=== PATIENT | male | born 1985 | race Caucasian/White ===

== ENCOUNTER 2020-01-13 15:11 | Emergency (ER) | payer OTHER ==
[~2020-01-13] VITALS: Ht 177.8 cm; Wt 90.7 kg
[~2020-01-13 15:11] MED LIST: AMOXICILLIN 50500 MG PO; CENTANY30 GM TP; IBUPROFEN 800800 M1 PO
[2020-01-13 15:26] VITALS: BP 148/82
[2020-01-13] MEDS ORDERED: BRINTELLIX20 MG PO (15:27)
[2020-01-13 15:28] LABS: URINE BILIRUBIN 1+ (Negative); URINE BLOOD TRACE (Negative); URINE CLARITY SL CLOUDY; URINE COLOR YELLOW; URINE GLUCOSE-RANDOM NEGATIVE (Negative); URINE KETONES 1+ (Negative); URINE LEUKOCYTES-REFLEX 1+ (Negative); URINE NITRITE-REFLEX NEGATIVE (Negative); URINE PROTEIN NEGATIVE (Negative); URINE SPECIFIC GRAVITY >= 1.030 (1.005-1.030); URINE UROBILINOGEN 0.2 E.U./dl (0.2-1.0)
[2020-01-13 15:30] LABS: ICTOTEST (BILI CONFIRMATORY) Positive (Negative)
[2020-01-13 15:36] LABS: BACTERIA-REFLEX >30 Many /HPF (None Seen); CASTS None Seen /LPF (None Seen); CRYSTALS None Seen /LPF (None Seen); MUCUS 0-3 Light strn/LPF (None Seen); SQUAMOUS NONE SEEN /LPF (0-3); URINE RBC 0-2 Rare /HPF (0-2); URINE WBC-REFLEX >25 Many /HPF (0-5); WBC CLUMPS Moderate (None Seen)
[2020-01-13] MEDS ORDERED: DOXYCYCLINE 10100 M2 PO (15:58)
== END 2020-01-13 16:14 | disposition home or self-care (01) ==
LOC: M.ERS 15:11
PROVIDERS: Emergency Medicine Emergency Medical Services
DX: N34.2 Other urethritis (principal); F17.210 Nicotine dependence, cigarettes, uncomplicated; Z86.19 Personal history of other infectious and parasitic diseases

== ENCOUNTER 2020-04-17 11:51 | Emergency (ER) | payer OTHER ==
[~2020-04-17] VITALS: Ht 175.3 cm; Wt 95.3 kg
[~2020-04-17 11:51] MED LIST changes: +BRINTELLIX20 MG PO; +DOXYCYCLINE 10100 M2 PO
[2020-04-17] MEDS ORDERED: BUSPIRONE HCL10 MG PO (12:05)
[2020-04-17] MEDS ORDERED: WELLBUTRIN 75 M75 M1 PO (12:05)
[2020-04-17] MEDS ORDERED: AZITHROMYCIN250 MG PO (12:15)
[2020-04-17] MEDS ORDERED: SUPRAX400 M1 PO (12:15)
[2020-04-17 12:20] VITALS: BP 129/87
== END 2020-04-17 12:20 | disposition home or self-care (01) ==
LOC: M.ERS 11:51
DX: R36.9 Urethral discharge, unspecified (principal); Z86.19 Personal history of other infectious and parasitic diseases

== ENCOUNTER 2020-05-02 12:51 | Emergency (ER) | payer OTHER ==
[~2020-05-02] VITALS: Ht 177.8 cm; Wt 95.3 kg
[~2020-05-02 12:51] MED LIST changes: +AZITHROMYCIN250 MG PO; +BUSPIRONE HCL10 MG PO; +SUPRAX400 M1 PO; +WELLBUTRIN 75 M75 M1 PO
[2020-05-02] MEDS ORDERED: WELLBUTRIN XL150 MG PO (13:05)
[2020-05-02] MEDS ORDERED: PEPCID20 MG PO (14:18)
[2020-05-02] MEDS ORDERED: PREDNISONE 10 M10 MG PO (14:18)
[2020-05-02 14:34] VITALS: BP 132/86
== END 2020-05-02 14:36 | disposition home or self-care (01) ==
LOC: M.ERS 12:51
DX: L53.9 Erythematous condition, unspecified (principal); Z86.19 Personal history of other infectious and parasitic diseases

== ENCOUNTER 2020-09-14 03:06 | Emergency (ER) | payer OTHER ==
[~2020-09-14] VITALS: Ht 177.8 cm; Wt 89.8 kg
[~2020-09-14 03:06] MED LIST changes: +PEPCID20 MG PO; +PREDNISONE 10 M10 MG PO; +WELLBUTRIN XL150 MG PO
[2020-09-14] MEDS ORDERED: CARAFATE 1 GM TA1 GM PO (04:15)
[2020-09-14] MEDS ORDERED: OMEPRAZOLE40 MG PO (04:15)
[2020-09-14 04:37] LABS: HEMATOCRIT 47.3 % (42.0-52.0); HEMOGLOBIN 16.1 gm/dL (14.0-18.0); MCH 29.3 pg (26.0-34.0); MCHC 34.1 g/dL (28.0-37.0); MCV 85.7 fL (80.0-100.0); MPV 9.4 fl. (7.2-11.1); RBC 5.52 mil/uL (4.50-6.00); RDW-CV 13.7 % (10.5-14.5); WBC 5.4 thou/uL (4.0-11.0)
[2020-09-14 04:46] LABS: URINE BILIRUBIN NEGATIVE (Negative); URINE BLOOD NEGATIVE (Negative); URINE CLARITY CLEAR; URINE COLOR YELLOW; URINE GLUCOSE-RANDOM NEGATIVE (Negative); URINE KETONES NEGATIVE (Negative); URINE LEUKOCYTES-REFLEX NEGATIVE (Negative); URINE NITRITE-REFLEX NEGATIVE (Negative); URINE PROTEIN NEGATIVE (Negative); URINE SPECIFIC GRAVITY >= 1.030 (1.005-1.030); URINE UROBILINOGEN 0.2 E.U./dl (0.2-1.0)
[2020-09-14 04:49] LABS: CALCIUM 8.1 mg/dL (8.5-10.1); CREATININE 0.9 mg/dL (0.6-1.3); POTASSIUM 3.8 mmol/L (3.5-5.1)
[2020-09-14 04:53] LABS: ALBUMIN 3.7 g/dL (3.4-5.0); TOTAL BILIRUBIN 0.4 mg/dL (<0.1-1.0); TOTAL PROTEIN 6.9 g/dL (6.4-8.2)
[2020-09-14 04:53] LABS: AMP/METHAMP Negative (Negative); BARBITURATES Negative (Negative); BENZODIAZEPINES POSITIVE (Negative); COCAINE Negative (Negative); METHADONE Negative (Negative); OPIATES Negative (Negative); PCP Negative (Negative); THC Negative (Negative)
[2020-09-14 05:10] VITALS: BP 117/62
== END 2020-09-14 05:10 | disposition home or self-care (01) ==
LOC: M.ERS 03:06
PROVIDERS: Personal Emergency Response Attendant
DX: K22.4 Dyskinesia of esophagus (principal); F17.210 Nicotine dependence, cigarettes, uncomplicated; Z86.19 Personal history of other infectious and parasitic diseases; Z79.899 Other long term (current) drug therapy